=== PATIENT | male | born 1960 | race African-American/Black ===

== ENCOUNTER 2017-05-17 14:28 | Emergency (ER) | payer OTHER ==
[~2017-05-17] VITALS: Ht 182.9 cm; Wt 82.0 kg
[2017-05-17] MEDS ORDERED: IBUPROFEN 600MG TABLET PO ONE (15:30)
[2017-05-17 16:30] VITALS: BP 132/79
== END 2017-05-17 18:35 | disposition home or self-care (01) ==
LOC: ER 15:45
DX: M54.6 Pain in thoracic spine (principal); Z85.46 Personal history of malignant neoplasm of prostate; F17.200 Nicotine dependence, unspecified, uncomplicated
CPT/HCPCS: 71020; 93005; 99284